=== PATIENT | female | born 1980 | race Hispanic/Latino ===

== ENCOUNTER 2021-04-12 09:53 | Emergency (ER) | payer BC, OTHER ==
[~2021-04-12] VITALS: Ht 170.2 cm; Wt 108.9 kg
[2021-04-12] MEDS ORDERED: NAPROXEN250 MG PO (10:29)
== END 2021-04-12 10:38 | disposition home or self-care (01) ==
LOC: ER 10:19
DX: M54.2 Cervicalgia (principal); M54.50 Low back pain, unspecified; V43.52XA Car driver injured in collision with other type car in traffic accident, initial encounter; Y92.488 Other paved roadways as the place of occurrence of the external cause
CPT/HCPCS: 99283

== ENCOUNTER 2023-10-05 16:34 | Emergency (ER) | payer BC ==
[~2023-10-05] VITALS: Ht 170.2 cm; Wt 90.7 kg
[~2023-10-05 16:34] MED LIST: ACETAMINOPHEN-1 EAC3 PO; CLONIDINE HCL0.1 MG PO; NAPROXEN250 MG PO
[2023-10-05 16:37] VITALS: TEMP 98.8
[2023-10-05] MEDS: KETOROLAC TROMETHAMINE 30 MG/ML VIAL IV STA (20:53)
[2023-10-05] MEDS: METOCLOPRAMIDE HCL 10 MG/2ML VIAL IV ONE (20:55)
[2023-10-05] MEDS: ONDANSETRON HCL INJ 2MG/ML 2ML 2 MG/ML VIAL IV STA (20:57)
[2023-10-05] MEDS: ACETAMIN/BUTALBITAL/CAFFEINE TAB PO ONE (20:58)
[2023-10-05] MEDS: DIPHENHYDRAMINE HCL INJ 50 MG/ML VIAL IV ONE (20:58)
[2023-10-05] MEDS: SODIUM CHLORIDE 0.9% 1000ML 1,000 ML IV ONE (21:00)
[2023-10-05 21:43] VITALS: BP 184/101; PULSE 79; RESP 18; TEMP 98.8; O2SAT 98
[2023-10-05] MEDS ORDERED: FIORICET 50-301 EACH PO (22:05)
[2023-10-05 22:15] VITALS: PULSE 64; RESP 20
[2023-10-05 22:36] VITALS: BP 143/85; PULSE 79; RESP 18; TEMP 98.8; O2SAT 99
== END 2023-10-05 22:39 | disposition home or self-care (01) ==
LOC: ER 16:39
DX: G43.909 Migraine, unspecified, not intractable, without status migrainosus (principal); I10 Essential (primary) hypertension; M32.9 Systemic lupus erythematosus, unspecified; D64.9 Anemia, unspecified; Z87.442 Personal history of urinary calculi
CPT/HCPCS: 70450; 99284; J1200; J1885; J2405; J2765; J7030